=== PATIENT | female | born 1955 | race Caucasian/White ===

== ENCOUNTER 2018-11-14 07:29 | Outpatient (CLI) | payer MEDICARE ==
--- NOTE | 2018-11-14 12:51 | Ultrasound Report ---
Reason: PERIPHERAL VASCULAR DISEASE,UNSPECIFIED Procedure Date: 11/14/2018 Accession Number: [id number] / [id number] Procedure: US - Duplex Lwr Ext Arterial Bilat CPT Code: FULL RESULT: EXAM: BILATERAL LOWER EXTREMITY ARTERIAL DOPPLER ULTRASOUND WITH ANKLE-BRACHIAL INDICES. EXAM DATE: 11/14/2018 09:41 AM. CLINICAL HISTORY: PERIPHERAL VASCULAR DISEASE, UNSPECIFIED. COMPARISON: None. TECHNIQUE: Real-time sonographic vascular imaging was performed by the magnetic resonance imaging coordinator, utilizing color-flow, Doppler flow, and spectral analysis. Multiple sales representative girls' apparel static images were saved for review. FINDINGS: The bilateral lower extremity arterial systems demonstrate diffuse hypoechoic and echogenic atherosclerotic disease. In the right lower extremity, there is 3 vessel vascular patency by color Doppler to the ankle with good spectral Doppler signal in the dorsalis pedis artery with brisk arterial upstrokes and biphasic or triphasic waveforms throughout. In the left lower extremity, there is 3 vessel vascular patency by color Doppler to the ankle with good spectral Doppler signal in dorsalis pedis arteries with brisk arterial upstrokes and biphasic or triphasic waveforms throughout. The following vessels were individually interrogated with peak systolic velocities in centimeters per second. Right Lower Extremity: OIL AND G[employer] SPECIALIST: PSV 178 cm/sec. PSFA: PSV 120 cm/sec. MSFA: PSV 159 cm/sec. DSFA: PSV 128 cm/sec. PFA: PSV 76 cm/sec. POP: PSV 44 cm/sec. JAYLA: PSV 37 cm/sec. MONUMENT STONECUTTER: PSV 32 cm/sec. SHENG: PSV 42 cm/sec. DPA: PSV 54 cm/sec. Left Lower Extremity: OIL [employer] GAS SPECIALIST: PSV 120 cm/sec. PSFA: PSV 99 cm/sec. MSFA: PSV 146 cm/sec. DSFA: PSV 114 cm/sec. PFA: PSV 91 cm/sec. POP: PSV 48 cm/sec. JAYLA: PSV 81 cm/sec. MONUMENT STONECUTTER: PSV 49 cm/sec. SHENG: PSV 28 cm/sec. DPA: PSV 29 cm/sec. Ankle brachial indices were constructed with Doppler ultrasound: Right brachial artery 133/68 Right ankle 128/73 MELISSA: 0.96 Left brachial artery 131/64 Left ankle 137/73 MELISSA: 1.04 IMPRESSION: Diffuse bilateral atherosclerotic disease without evidence of vessel occlusion or focal flow-limiting stenosis. RADIA
== END 2018-11-14 07:30 | disposition home or self-care (01) ==
LOC: DI 07:29
PROVIDERS: ATTEND Orthopaedic Surgery
DX: I70.203 Unspecified atherosclerosis of native arteries of extremities, bilateral legs (principal)
CPT/HCPCS: 93922; 93925

== ENCOUNTER 2022-09-01 10:41 | Outpatient (CLI) | payer MEDICARE | END 2022-09-01 23:58 | disposition home or self-care (01) | LOC: EMS 10:41 | DX: R55 Syncope and collapse (principal); K62.5 Hemorrhage of anus and rectum; R10.9 Unspecified abdominal pain; M54.50 Low back pain, unspecified | CPT/HCPCS: A0425; A0427 ==